=== PATIENT | female | born 1955 | race Caucasian/White ===

== ENCOUNTER 2016-12-09 09:30 | Outpatient (CLI) | payer OTHER ==
--- NOTE | 2016-12-09 09:55 | RAD ---
SINGLE VIEW OF THE ABDOMEN 12/09/16 COMPARISON: None. HISTORY: Renal stones. FINDINGS: Single view of the abdomen shows a nonspecific, nonobstructed bowel gas pattern. There is moderate s tool in the colon overlying the renal shadows limiting evaluation of the kidneys. No obvious calcifi cation project over either renal shadow. No calcifications are seen along the course of the ureters to suggest urolithiasis. IMPRESSION: No renal stones identified. POS: RIC
[2016-12-09 14:52] LABS: Bilirubin Negative (Negative); Blood, Urine Negative (Negative); Glucose, Urine (Dipstick) Negative (Negative); Ketone, Urine Negative (Negative); Nitrite Negative (Negative); Protein, Urine (Dipstick) Negative (Neg-Trace)
[2016-12-09 15:06] LABS: Bacteria/HPF None Seen HPF (None Seen); Hyaline Casts/LPF 0-3 HYALINE CAST LPF (0-3 Hyaline); RBC/HPF 0-3 HPF (0-3); Squamous Epithelial 0-3 HPF (0-3); WBC/HPF 0-3 HPF (0-3)
== END 2016-12-09 09:31 | disposition home or self-care (01) ==
LOC: RAD 09:30
PROVIDERS: ATTEND Urology
DX: N20.0 Calculus of kidney (principal)
CPT/HCPCS: 74000; 81001

== ENCOUNTER 2016-12-24 10:29 | Outpatient (CLI) | payer OTHER ==
--- OUTSIDE RECORDS SUMMARY | 2016-12-24 11:16 | XMS | Clinical Summary ---
:1955 Author Organization [facility] Address [address] [place] [id number] Phone Care Team Providers Name Role Phone , Primary Care Provider Unavailable Allergies Not on File Current Medications Not on file Active Problems Not on file Social History Tobacco Use Types Packs/Day Years Used Date Never Assessed Sex Assigned at Date Recorded Not on file Last Filed Vital Signs Not on file Plan of Treatment Not on file Results Not on filefrom Last 3 Months
--- NOTE | 2016-12-24 14:05 | BD ---
DEXA BONE DENSITY STUDY HISTORY: A 61-year-old female with a history of screening for osteoporosis. The patient indicates that she has had fractures that were not related to significant trauma and has taken steroids and is being treated for osteoporosis. LUMBAR SPINE BMD (g/cm2) T-SCORE L1 0.874 -1.1 L2 0,886 -1.3 L3 0.945 -1.3 L4 0.947 -1.0 TOTAL 0.914 -1.2 Evidence for osteopenia with increased risk for fracture. LEFT FEMUR BMD (g/mc2) T-SCORE FEMORAL NECK 0.536 -2.8 TOTAL 0.699 -2.0 Evidence for osteoporosis with high risk for fracture. FRAX score was not reported because some T-scores were at or below -2.5. The patient is treated for osteoporosis. POS: RIC
--- NOTE | 2017-01-04 16:28 | MMO ---
SCREENING MAMMOGRAPHY 12/24/16 COMPARISON: 12/03/15, 10/31/14, 10/23/13 HISTORY: Screening mammogram. FINDINGS: Patient's mammogram is interpreted with the assistance of computer aided detection. There is scatter ed fibroglandular densities present. Benign calcification is noted bilaterally. There is no dominant mass or architectural distortion. No concerning microcalcifications are seen. IMPRESSION: BI-RADS 2: Benign Finding(s) Routine annual screening mammography (for women over age 40). POS: RIC
== END 2016-12-24 10:30 | disposition home or self-care (01) ==
LOC: MAMMO 10:29
PROVIDERS: ATTEND Internal Medicine
DX: Z12.31 Encounter for screening mammogram for malignant neoplasm of breast (principal); Z13.820 Encounter for screening for osteoporosis; M81.0 Age-related osteoporosis without current pathological fracture
CPT/HCPCS: 77067; 77080; G0202

== ENCOUNTER 2017-12-15 10:46 | Outpatient (CLI) | payer OTHER ==
[2017-12-15 11:38] LABS: Anion Gap 11 mmol/L (10-20); Carbon Dioxide 32 mmol/L (23-31); Chloride 100 mmol/L (98-107); Potassium 4.1 mmol/L (3.5-5.1); Sodium 139 mmol/L (136-145)
--- NOTE | 2017-12-15 13:59 | RAD ---
ABDOMEN ONE VIEW: History: M21.0 - renal stones. Comparison: 12-09-16 FINDINGS: Low grade levoscoliosis. Punctate calcifications are seen in the left superior and inferior renal col lecting systems measuring less than 2 mm. Phleboliths in the pelvis. Mild degenerative changes in both hips. IMPRESSION: Punctate calcification projecting in the left superior and inferior renal collecting system may be ne phrolithiasis. POS: OFF
== END 2017-12-15 10:47 | disposition home or self-care (01) ==
LOC: RAD 10:46
PROVIDERS: ATTEND Urology
DX: N20.0 Calculus of kidney (principal); N28.89 Other specified disorders of kidney and ureter
CPT/HCPCS: 74018; 80051

== ENCOUNTER 2018-01-17 09:00 | Outpatient (CLI) | payer OTHER | END 2018-01-17 09:01 | disposition home or self-care (01) | LOC: BICMAMMO 09:00 | PROVIDERS: ATTEND Internal Medicine | DX: Z12.31 Encounter for screening mammogram for malignant neoplasm of breast (principal); Z80.3 Family history of malignant neoplasm of breast | CPT/HCPCS: 77063; 77067 ==

== ENCOUNTER 2018-03-07 10:06 | Outpatient (CLI) | payer OTHER ==
--- NOTE | 2018-03-07 12:04 | BD ---
DEXA BONE DENSITY: HISTORY: A 62-year-old female. Osteoporosis. COMPARISON: 12/24/2016 LUMBAR SPINE BMD (g/cm2) T-SCORE Z-SCORE L1 0.855 -1.2 0.1 L2 0.896 -1.2 0.3 L3 0.925 -1.4 0.2 L4 0.949 -1.0 0.6 TOTAL 0.908 -1.3 0.3 On 12/24/2016, 0.914, -1.2. BMD change versus baseline negative 0.6%; BMD change versus previous -0. 6%. FEMORAL NECK 0.527 -2.9 -1.5 TOTAL 0.810 -1.1 0.0 On 12/24/2016, 0.699, -2.0. BMD change versus baseline plus 16%; BMD change versus previous +16%. IMPRESSION: 1. Lumbar spine WHO classification osteopenia. Fracture risk is increased. 2. Femoral neck WHO classification osteoporosis. Fracture risk not reported because some T-score ar e at or below -2.5. Treated for osteoporosis. POS: RIC
== END 2018-03-07 10:07 | disposition home or self-care (01) ==
LOC: BICMAMMO 10:06
PROVIDERS: ATTEND Internal Medicine
DX: M81.0 Age-related osteoporosis without current pathological fracture (principal); M85.88 Other specified disorders of bone density and structure, other site
CPT/HCPCS: 77080

== ENCOUNTER 2018-07-26 08:14 | Outpatient (CLI) | payer OTHER ==
--- NOTE | 2018-07-26 08:46 | ULT ---
Exam: Liver ultrasound with vascular duplex and color and spectral Doppler imaging: HISTORY: Hepatitis B FINDINGS: Liver echogenicity is unremarkable. Common bile duct 0.3 cm. Gallbladder shows no evidence of gallsto alexei, wall thickening, or pericholecystic fluid. Visualized pancreas is unremarkable. Vascular duplex demonstrates antegrade hepatic venous and portal venous flow. IMPRESSION: Unremarkable hepatic ultrasound. Antegrade hepatic and portal venous flow.
== END 2018-07-26 08:15 | disposition home or self-care (01) ==
LOC: BICULT 08:14
PROVIDERS: ATTEND Internal Medicine
DX: B18.1 Chronic viral hepatitis B without delta-agent (principal); E83.119 Hemochromatosis, unspecified; Z86.010 Personal history of colon polyps
CPT/HCPCS: 76705

== ENCOUNTER 2019-02-05 10:53 | Outpatient (CLI) | payer OTHER ==
--- NOTE | 2019-02-05 13:05 | MMO ---
Bilateral MAMMO Bilat Screen [facility]. CLINICAL HISTORY: Patient is 63 years old and is seen for screening. The patient has the following family history of breast cancer: aunt and sister. The patient has no personal history of cancer. VIEWS: The views performed were: bilateral craniocaudal with tomosynthesis and bilateral mediolateral oblique with tomosynthesis. FILMS COMPARED: The present examination has been compared to a prior imaging study performed at [facility] on 01/17/2018. This study has been interpreted with the assistance of computer-aided detection. MAMMOGRAM FINDINGS: There are scattered fibroglandular densities. There are stable benign appearing calcifications seen in both breasts. There are no suspicious masses, suspicious calcifications, or new areas of architectural distortion. IMPRESSION: THERE IS NO MAMMOGRAPHIC EVIDENCE OF MALIGNANCY. A ROUTINE FOLLOW-UP MAMMOGRAM IN 1 YEAR IS RECOMMENDED. THE RESULTS OF THIS EXAM WERE SENT TO THE PATIENT. ACR BI-RADS Category 2 - Benign finding MAMMOGRAPHY NOTE: 1. A negative mammogram report should not delay a biopsy if a dominant of clinically suspicious mass is present. 2. Approximately 10% to 15% of breast cancers are not detected by mammography. 3. Adenosis and dense breasts may obscure an underlying neoplasm. Reported by: FLIP ROACH MD Electonically Signed: [id number]
== END 2019-02-05 10:54 | disposition home or self-care (01) ==
LOC: BICMAMMO 10:53
PROVIDERS: ATTEND Internal Medicine
DX: Z12.31 Encounter for screening mammogram for malignant neoplasm of breast (principal); Z80.3 Family history of malignant neoplasm of breast
CPT/HCPCS: 77063; 77067

== ENCOUNTER 2019-03-01 09:00 | Outpatient (CLI) | payer OTHER ==
--- NOTE | 2019-03-01 09:48 | BD ---
BONE DENSITOMETRY USING DEXA: Date: 03/01/2019 HISTORY: Age-related osteoporosis without current pathological fracture. Postmenopausal screening for osteopor osis. FINDINGS: Lumbar Spine: BMD (g/cm2) L1 0.853 T-Score: -1.2 Z-Score: 0.2 L2 0.934 T-Score: -0.9 Z-Score: 0.7 L3 0.944 T-Score: -1.3 Z-Score: 0.4 L4 0.912 T-Score: -1.4 Z-Score: 0.4 L1-L4 0.911 T-Score: -1.2 Z-Score: 0.4 Femoral Neck: 0.528 T-Score: -2.9 Z-Score: -1.5 Total Femur: 0.756 T-Score: -1.5 Z-Score: -0.4 There has been interval improvement of 0.3% in the bone mineral density of the lumbar spine and a red uction of 6.7% in the bone mineral density of the proximal femur since 03/07/2018. IMPRESSION: Osteoporosis. POS: TPC
== END 2019-03-01 09:01 | disposition home or self-care (01) ==
LOC: BICMAMMO 09:00
PROVIDERS: ATTEND Internal Medicine
DX: M81.0 Age-related osteoporosis without current pathological fracture (principal)
CPT/HCPCS: 77080

== ENCOUNTER 2020-03-07 13:30 | Outpatient (CLI) | payer OTHER ==
--- NOTE | 2020-03-07 14:36 | MMO ---
Bilateral MAMMO Bilat Screen [facility]. CLINICAL HISTORY: Patient is 64 years old and is seen for screening. The patient has the following family history of breast cancer: 2 aunts and sister. The patient has no personal history of cancer. VIEWS: The views performed were: bilateral craniocaudal with tomosynthesis and bilateral mediolateral oblique with tomosynthesis. FILMS COMPARED: The present examination has been compared to prior imaging studies performed at [facility] on 01/17/2018 and 02/05/2019, and at [facility] on 12/03/2015 and 12/24/2016. This study has been interpreted with the assistance of computer-aided detection. MAMMOGRAM FINDINGS: There are scattered fibroglandular densities. There are stable benign appearing calcifications seen in both breasts. There are no suspicious masses, suspicious calcifications, or new areas of architectural distortion. IMPRESSION: THERE IS NO MAMMOGRAPHIC EVIDENCE OF MALIGNANCY. A ROUTINE FOLLOW-UP MAMMOGRAM IN 1 YEAR IS RECOMMENDED. THE RESULTS OF THIS EXAM WERE SENT TO THE PATIENT. ACR BI-RADS Category 2 - Benign finding MAMMOGRAPHY NOTE: 1. A negative mammogram report should not delay a biopsy if a dominant of clinically suspicious mass is present. 2. Approximately 10% to 15% of breast cancers are not detected by mammography. 3. Adenosis and dense breasts may obscure an underlying neoplasm. Reported by: YOLANDA CASTAÑEDA MD Electonically Signed: [id number]
--- NOTE | 2020-03-07 14:51 | BD ---
EXAM: DEXA bone density examination HISTORY: 64-year-old postmenopausal female for screening COMPARISON: 03/01/2019 FINDINGS: L1--bone mineral density 0.934 g/sq cm; T score -0.5 L2--bone mineral density 0.980 g/sq cm; T score -0.4 L3--bone mineral density 1.005 g/sq cm; T score -0.7 L4--bone mineral density 0.973 g/sq cm; T score -0.8 Total L1-L4--bone mineral density 0.974 g/sq cm; T score -0.7 Left femoral neck--bone mineral density0.492; T score -3.2 Total proximal left femur--bone mineral density 0.718; T score -1.8 IMPRESSION: Osteoporosis. When compared to the prior examination, the bone density in the spine has i ncreased approximately 7% and the bone density in the hip has decreased approximately 5%.
== END 2020-03-07 13:31 | disposition home or self-care (01) ==
LOC: BICMAMMO 13:30
PROVIDERS: ATTEND Internal Medicine
DX: Z12.31 Encounter for screening mammogram for malignant neoplasm of breast (principal); M81.0 Age-related osteoporosis without current pathological fracture; Z80.3 Family history of malignant neoplasm of breast
CPT/HCPCS: 77063; 77067; 77080

== ENCOUNTER 2020-06-04 08:41 | Outpatient (CLI) | payer OTHER | END 2020-06-04 08:42 | disposition home or self-care (01) | LOC: BICCT 08:41 | PROVIDERS: ATTEND Urology | DX: N20.0 Calculus of kidney (principal); Z90.81 Acquired absence of spleen | CPT/HCPCS: 74176 ==

== ENCOUNTER 2020-09-30 08:17 | Outpatient (CLI) | payer OTHER | END 2020-09-30 08:18 | disposition home or self-care (01) | LOC: BICULT 08:17 | PROVIDERS: ATTEND Internal Medicine | DX: B18.1 Chronic viral hepatitis B without delta-agent (principal); E83.119 Hemochromatosis, unspecified; R93.2 Abnormal findings on diagnostic imaging of liver and biliary tract; Z86.010 Personal history of colon polyps | CPT/HCPCS: 76705 ==

== ENCOUNTER 2021-04-02 12:46 | Outpatient (CLI) | payer MEDICARE | END 2021-04-02 12:47 | disposition home or self-care (01) | LOC: BICMAMMO 12:46 | PROVIDERS: ATTEND Internal Medicine | DX: Z12.31 Encounter for screening mammogram for malignant neoplasm of breast (principal); M81.0 Age-related osteoporosis without current pathological fracture; Z80.3 Family history of malignant neoplasm of breast; Z91.89 Other specified personal risk factors, not elsewhere classified | CPT/HCPCS: 77063; 77067; 77080 ==

== ENCOUNTER 2021-06-11 11:32 | Outpatient (CLI) | payer MEDICARE | END 2021-06-11 11:33 | disposition home or self-care (01) | LOC: BICRAD 11:32 | PROVIDERS: ATTEND Internal Medicine | DX: M54.50 Low back pain, unspecified (principal); M47.816 Spondylosis without myelopathy or radiculopathy, lumbar region | CPT/HCPCS: 72100 ==

== ENCOUNTER 2021-10-02 10:39 | Outpatient (CLI) | payer MEDICARE | END 2021-10-02 10:40 | disposition home or self-care (01) | LOC: BICRAD 10:39 | PROVIDERS: ATTEND Urology | DX: N20.0 Calculus of kidney (principal) | CPT/HCPCS: 36415; 74018; 80048; 81001 ==

== ENCOUNTER 2023-07-19 09:36 | Outpatient (CLI) | payer MEDICARE | END 2023-07-19 09:37 | disposition home or self-care (01) | LOC: BICMAMMO 09:36 | PROVIDERS: ATTEND Internal Medicine | DX: Z12.31 Encounter for screening mammogram for malignant neoplasm of breast (principal); Z80.3 Family history of malignant neoplasm of breast; Z91.89 Other specified personal risk factors, not elsewhere classified | CPT/HCPCS: 77063; 77067 ==

== ENCOUNTER 2024-04-13 11:30 | Observation (INO) | payer MEDICARE ==
[2024-04-13 12:01] LABS: Bilirubin Negative (Negative); Blood, Urine 2+ (Negative); CAUTI Indications for Culture Pelvic or flank pain; Clarity Clear (Clear); Glucose, Urine (Dipstick) Normal (Negative); Ketone, Urine Negative (Negative); Leukocyte Negative Leu/uL (Negative); Nitrite Negative (Negative); Protein, Urine (Dipstick) Negative (Neg-Trace); Specific Gravity, Urine 1.008 (1.002-1.036); Squamous Epithelial 0-3 HPF (0-3); Urobilinogen Normal mg/dL (Less than 2); pH, Urine 6.5 (5.0-9.0)
[2024-04-13 12:02] LABS: Bacteria/HPF 1+ HPF (None Seen)
[2024-04-13 12:03] LABS: Urine Culture Reflex No No
[2024-04-13 13:54] LABS: #Basophils 0.11 10x3/uL (0.0-0.2); %Eosinophils 2.4 % (0.0-10.0); %Lymphocytes 46.7 % (21.0-51.0); %Monocytes 8.1 % (0.0-10.0); %Neutrophils 41.6 % (42.0-75.0); Hematocrit 42.6 % (36.0-47.0); Hemoglobin 14.1 g/dL (12.0-16.0); Mean Corpuscular HGB CONC 33.1 g/dL (32.0-36.0); Mean Corpuscular Hemoglobin 31.9 pg (27.0-31.0); Mean Corpuscular Volume 96.4 fL (78.0-98.0); Mean Platelet Volume 9.9 fL (7.4-10.4); Platelet Count 282 10x3/uL (130-400); RBC Distribution Width 14.4 % (11.5-14.5); Red Blood Cell (RBC) Count 4.42 mill/uL (4.20-5.40)
[2024-04-13 14:04] LABS: ALT (SGPT) 18 U/L (Less than 34); AST (SGOT) 38 U/L (11-34); Albumin 4.4 g/dL (3.1-4.5); Alkaline Phosphatase 61 U/L (40-110); Anion Gap 13 mmol/L (10-20); BUN (Urea Nitrogen) 19 mg/dL (9.8-20.1); Bilirubin, Total 0.7 mg/dL (0.3-1.2); Calc. Creatinine Clearance 0 mL/min (70-130); Carbon Dioxide 25 mmol/L (23-31); Chloride 105 mmol/L (98-107); Estimated GFR 87; Globulin 4.3 g/dL (2.4-3.5); Glucose 118 mg/dL (80-115); Lipase 15 U/L (8-78); Potassium 4.2 mmol/L (3.5-5.1); Protein, Total 8.7 g/dL (5.8-8.1); Sodium 139 mmol/L (136-145)
[2024-04-13] MEDS ORDERED: cefTRIAXone (ROCEPHIN) 2 GM VIAL ONE (15:03)
[2024-04-13] MEDS ORDERED: Sodium Chloride 0.9% 100 ML ONE (15:03)
[2024-04-13] MEDS ORDERED: HYDROcodone/Acetaminophen 5/325 mg Tablet PO PRN (15:36)
[2024-04-13] MEDS ORDERED: Morphine 2 MG/ML VIAL SLOW IVP PRN (15:36)
[2024-04-13] MEDS ORDERED: Senokot S 8.6-50 MG TAB PO PRN (17:16)
[2024-04-13] MEDS ORDERED: Dextrose 5% in Water 1,000 ML IV PRN (17:16)
[2024-04-13] MEDS ORDERED: Dextrose 50% Abboject 50 ML SYRINGE SLOW IVP PRN (17:16)
[2024-04-13] MEDS ORDERED: Acetaminophen 650 MG Suppository PR PRN (17:16)
[2024-04-13] MEDS ORDERED: Glucagon 1 MG/ML KIT IM PRN (17:16)
[2024-04-13] MEDS ORDERED: Ondansetron PF 4 MG/2 ML Vial IVP PRN (17:16)
[2024-04-13] MEDS ORDERED: Insulin Lispro 100 UNIT/ML 10 ML VIAL SC PRN ×2 (17:16)
[2024-04-13] MEDS ORDERED: Acetaminophen 325 MG TAB PO PRN (17:16)
[2024-04-13] MEDS ORDERED: Ondansetron ODT 4 MG TAB PO PRN (17:16)
[2024-04-13] MEDS: Sodium Chloride 0.9% 1,000 ML IV SCH (19:48)
[2024-04-14] MEDS: cefTRIAXone\\ROCEPHIN 1 GM in Sodium Chloride 0.9% 100 ML IVPB SCH (06:07)
[2024-04-14 06:11] LABS: Anion Gap 13 mmol/L (10-20); BUN (Urea Nitrogen) 14 mg/dL (9.8-20.1); Calc. Creatinine Clearance 0 mL/min (70-130); Calcium 8.5 mg/dL (7.8-10.44); Carbon Dioxide 22 mmol/L (23-31); Chloride 107 mmol/L (98-107); Estimated GFR 91; Glucose 145 mg/dL (80-115); Sodium 138 mmol/L (136-145)
[2024-04-14 06:13] LABS: Hematocrit 37.9 % (36.0-47.0); Hemoglobin 12.7 g/dL (12.0-16.0); Mean Corpuscular HGB CONC 33.5 g/dL (32.0-36.0); Mean Corpuscular Hemoglobin 32.5 pg (27.0-31.0); Mean Corpuscular Volume 96.9 fL (78.0-98.0); Mean Platelet Volume 9.7 fL (7.4-10.4); Platelet Count 252 10x3/uL (130-400); RBC Distribution Width 14.5 % (11.5-14.5); Red Blood Cell (RBC) Count 3.91 mill/uL (4.20-5.40)
[2024-04-14 07:07] LABS: Anisocytosis SLIGHT = 6-15 cells HPF (0-5); Burr Cells SLIGHT = 2-5 cells HPF (0-1); Eosinophils 4 % (0-10); Lymphocytes 49 % (21-51); Macrocytosis SLIGHT = 6-15 cells HPF (0-5); Monocytes 3 % (0-10); Neutrophil 41 % (42-75); Platelet Adequacy Comment Platelets Normal; Reactive Lymphocytes 2 % (0-10); Smudge Cells 7.1 %
[2024-04-14] MEDS: Tamsulosin HCl 0.4 MG CAP PO SCH (08:11)
[2024-04-14] MEDS ORDERED: SUCCINYLCHOLINE/SOD CL,ISO/PF 200 MG/10 ML SYRINGE FS ONE (08:59)
[2024-04-14] MEDS ORDERED: PROPOFOL 20 ML ONE (08:59)
[2024-04-14] MEDS ORDERED: Rocuronium Bromide 10 MG/ML (10ML VIAL) ONE (08:59)
[2024-04-14] MEDS ORDERED: fentaNYL PF 100 MCG/2 ML SYRINGE ONE (08:59)
[2024-04-14] MEDS ORDERED: Midazolam HCl 2 mg/2 ml Vial ONE (09:01)
[2024-04-14] MEDS ORDERED: Lidocaine 1% PF 5 ML VIAL ONE (09:11)
[2024-04-14] MEDS ORDERED: Dexamethasone 20 MG/5 ML VIAL ONE (09:11)
[2024-04-14] MEDS ORDERED: Ondansetron PF 4 MG/2 ML Vial ONE (09:11)
[2024-04-14] MEDS ORDERED: ePHEDrine Sulfate 50 MG/10 ML VIAL ONE (09:45)
[2024-04-14] MEDS ORDERED: Ketorolac Tromethamine 30 MG (1 mL) VIAL ONE (09:59)
[2024-04-14] MEDS ORDERED: Glycopyrrolate 0.2 MG/ML 5 ML SYRINGE ONE (10:03)
[2024-04-14 12:13] VITALS: BMI 24.2
[2024-04-14 14:07] VITALS: TEMP 97.7
[2024-04-14 14:08] VITALS: BP 114/53
[2024-04-14] MEDS: HYDROcodone/Acetaminophen 5/325 mg Tablet PO PRN (15:04)
[2024-04-14] MEDS: Phenazopyridine HCl 100 MG TAB PO SCH (15:04)
[2024-04-15] MEDS ORDERED: Oxybutynin ER 5 MG TAB PO SCH (09:00)
[2024-04-15] MEDS ORDERED: Polyethylene Glycol 3350 17 GM Packet PO SCH (09:00)
== END 2024-04-14 16:30 | disposition home or self-care (01) ==
LOC: ERS 11:30 → INTOOBSV 16:07 → T4-B 16:07
PROVIDERS: ADMIT Internal Medicine; ATTEND Family Medicine
PROC: 0TC18ZZ Extirpation of Matter from Left Kidney, Via Natural or Artificial Opening Endoscopic (ICD-10-PCS; principal; 2024-04-14)
PROC: 0T778DZ Dilation of Left Ureter with Intraluminal Device, Via Natural or Artificial Opening Endoscopic (ICD-10-PCS; 2024-04-14)
DX: N20.2 Calculus of kidney with calculus of ureter (principal); N39.0 Urinary tract infection, site not specified; E11.40 Type 2 diabetes mellitus with diabetic neuropathy, unspecified; E03.9 Hypothyroidism, unspecified; F32.A Depression, unspecified; B18.1 Chronic viral hepatitis B without delta-agent; Z90.81 Acquired absence of spleen; Z88.1 Allergy status to other antibiotic agents; Z88.6 Allergy status to analgesic agent; Z79.890 Hormone replacement therapy; Z79.82 Long term (current) use of aspirin; Z79.84 Long term (current) use of oral hypoglycemic drugs; Z79.2 Long term (current) use of antibiotics; Z79.899 Other long term (current) drug therapy
CPT/HCPCS: 52356; 74176; 74420; 80048; 80053; 81001; 82365; 82962; 83690; 85025 ×2; 87086; 96365; 96376; 99285; C1747; C1769; C2617; G0378 ×3; J0696 ×2; J1100; J1885; J2250; J2405; J2704; J7030 ×2; 36415; 36416; 88300